=== PATIENT | female | born 1980 | race African-American/Black ===

== ENCOUNTER 2021-05-27 16:28 | Emergency (ER) | payer MEDICAID, OTHER ==
[~2021-05-27] VITALS: Ht 154.9 cm; Wt 90.7 kg
[2021-05-27 17:02] VITALS: BP 126/84
[2021-05-27] MEDS ORDERED: CEPH-509 PO (17:10)
[2021-05-27] MEDS ORDERED: cefTRIAXone SOD 1,000 MG VL IM ONE (17:15)
[2021-05-27] MEDS ORDERED: TETANUS-DIPTH-ACEL PERTUSSIS 0.5ML SYR Tdap IM ONE (17:15)
== END 2021-05-27 17:51 | disposition home or self-care (01) ==
LOC: ER 16:28
DX: S30.860A Insect bite (nonvenomous) of lower back and pelvis, initial encounter (principal); Z79.899 Other long term (current) drug therapy; W57.XXXA Bitten or stung by nonvenomous insect and other nonvenomous arthropods, initial encounter; Y93.89 Activity, other specified; Y92.89 Other specified places as the place of occurrence of the external cause; Y99.8 Other external cause status
CPT/HCPCS: 90471; 90715; 96372; 99284; J0696